=== PATIENT | male | born 1990 | race Caucasian/White ===

== ENCOUNTER 2019-07-07 13:45 | Emergency (ER) | payer OTHER ==
[~2019-07-07] VITALS: Ht 177.8 cm; Wt 92.0 kg
[2019-07-07] MEDS ORDERED: LIDOcaine 1% 30ml preserv. free vial SQ STA (14:21)
[2019-07-07] MEDS ORDERED: HYDROcodone/acetaminophen 10/325mg tab PO ONE (14:35)
[2019-07-07] MEDS ORDERED: ketorolac trometh. 30mg/ml inj. IM ONE (14:35)
[2019-07-07] MEDS ORDERED: amox tr/potassium clavulanate 875/125mg TAB PO ONE (15:50)
[2019-07-07] MEDS ORDERED: HYDR-4353 PO (15:56)
[2019-07-07] MEDS ORDERED: AMOX-422 PO (15:56)
[2019-07-07 16:13] VITALS: BP 123/72
== END 2019-07-07 16:15 | disposition home or self-care (01) ==
LOC: ER 13:46
DX: S62.631B Displaced fracture of distal phalanx of left index finger, initial encounter for open fracture (principal); S62.633A Displaced fracture of distal phalanx of left middle finger, initial encounter for closed fracture; Z79.2 Long term (current) use of antibiotics; Z79.899 Other long term (current) drug therapy; V87.8XXA Person injured in other specified noncollision transport accidents involving motor vehicle (traffic), initial encounter; Y93.89 Activity, other specified; Y92.89 Other specified places as the place of occurrence of the external cause; Y99.8 Other external cause status
CPT/HCPCS: 29130; 96372; 99283; J1885; 12001